=== PATIENT | female | born 1970 | race Hispanic/Latino ===

== ENCOUNTER 2023-11-15 16:09 | Outpatient (CLI) | payer OTHER | END 2023-11-15 16:10 | disposition home or self-care (01) | LOC: CSHMRI 16:09 | PROVIDERS: ATTEND Physician Assistant | DX: M25.561 Pain in right knee (principal); M17.11 Unilateral primary osteoarthritis, right knee; M94.261 Chondromalacia, right knee; M23.303 Other meniscus derangements, unspecified medial meniscus, right knee; M25.461 Effusion, right knee ==